=== PATIENT | female | born 1965 | race Caucasian/White ===

== ENCOUNTER 2019-01-03 21:13 | Emergency (ER) | payer MEDICARE ==
[2019-01-03] MEDS: Ketorolac 60 MG/2 ML SDV IM ONE (23:20)
--- NOTE | 2019-01-04 09:10 | ER ---
REASON FOR EMERGENCY ROOM VISIT: Toothache. HISTORY: This 53-year-old woman, with significant fibromyalgia, has had trouble off and on with a toothache for the past 3 months. She has been on penicillin for this 500 mg p.o. q.i.d. for the past 9 days. She takes tramadol on a chronic basis apparently for fibromyalgia 50 mg p.o. t.i.d. p.r.n., and she has 1 month supply of this. The toothache has been worse lately for the past few days, and they did make an appointment, but she is unable to see her dentist until 01/12/2019. She has not had any fever or chills. Her toothache has been more steady this evening and causes some pain to radiate down the left side of her neck. She denies fever or chills. MEDICATIONS: Reviewed. Please see EMR. PAST MEDICAL HISTORY: 1. Fibromyalgia. 2. Hypertension. ALLERGIES: GI UPSET WITH IBUPROFEN. PHYSICAL EXAMINATION: GENERAL: She is afebrile. HEENT: No conjunctivitis is noted. Oropharynx, she has a number of dental caries; her left mandibular molars, second and third molars, have a lot of debris and some mild erythema around the gingival edges. There is some tenderness to touch of these areas. NECK: She has no adenopathy. She has no facial swelling or parotid swelling. IMPRESSION: Probable tooth abscess with poor dentition. PLAN: In discussing the pain management aspects of her care, apparently she has been on a number of very high potency narcotics in the past for pain issues related to her fibromyalgia, including fentanyl patches, oxycodone, and hydrocodone, but she has done reasonably well on tramadol, for which she has been given monthly supplies on a fairly long- term basis. Because of these factors, I felt reluctant to give her any other opioid, other than the ones she is taking. We went ahead and gave her one 60 mg IM injection of Toradol. I instructed her to continue with her antibiotics as prescribed and that she can increase the dose of her tramadol from 1 tablet every 6 hours or 8 hours to 2 tablets every 4 hours as needed. That combined with the Toradol ought to get her by for the next day or so and she can check in with her provider, who is in [place]. Currently, they are staying at their cabin in [place], and I suggested that, given the discomfort she is going through, it might be sensible for them to return home earlier than planned, so that she can be seen by her primary care provider. I feel that, in cases like this, given her past history, her pain management should be undertaken by a single provider. I explained all this to the patient and her , and they completely understand and agree with this plan. All questions were answered. HERLINDA /[id number] OSCAR
== END 2019-01-04 00:05 | disposition home or self-care (01) ==
LOC: LB.ED 21:13
DX: K00.7 Teething syndrome (principal); K02.9 Dental caries, unspecified; I10 Essential (primary) hypertension; Z88.8 Allergy status to other drugs, medicaments and biological substances
CPT/HCPCS: 96372; 99282; J1885; 99283

== ENCOUNTER 2019-01-05 15:55 | Emergency (ER) | payer MEDICARE ==
--- NOTE | 2019-01-06 08:23 | ER ---
REASON FOR EMERGENCY ROOM VISIT: Toothache. HISTORY: Yoana returns 2 days after she was seen for a toothache on 01/03/2019. At that time, she had had a 3-month history of increasingly troublesome toothache. She had been on penicillin for 9 days prior to that visit. She had been taking tramadol for pain on a chronic basis for her fibromyalgia, and she had a very ample supply of that medication. The toothache had been worsening over the few days prior to that admission. Therefore, she was seen in the emergency department. She had no fever or chills with that. At that time, she was advised to continue on her penicillin, and because of her history of having been on a large number of opiates in the past because of issues related to her fibromyalgia, I advised that she double her dose of tramadol, which she has done. Prior to this, she has been on a variety of opiates, including fentanyl patches, oxycodone, and hydrocodone, but tramadol seemed to work best for her overall. She did get a 60 mg IM injection of Toradol, which offered her some pain relief for a day or so, but then her pain has come back and gotten back to where it was when she was seen 2 days ago. She has continued on the penicillin, and I believe she has run out by now. In the interim, she and her spoke to their dentist in [place], and sent her photos to look at. From that, her dentist made arrangements with an oral surgeon in [place], and she is scheduled for an extraction on Friday, 3 days from now. She has been afebrile and has no chills. The pain is quite significant. They receive mixed messages from the Oral Surgery Department in [place] versus her dentist in [place]. Apparently, whoever they spoke to in [place] suggested that she may need IV antibiotics, but no effort was made to reach out to me, so I do not know what they were referring to. PAST MEDICAL HISTORY: Significant for fibromyalgia and hypertension. MEDICATIONS: Reviewed. See EMR. PHYSICAL EXAMINATION: GENERAL: She is afebrile. HEENT: Examination of her oropharynx, she has a lot of dental caries and her left mandibular molars, both the 2nd and 3rd, have some fibrinous exudate and debris along the gingival margin. There is some slight edema of the gingiva adjacent to these 2 molars. She has no cervical adenopathy and no swelling of the soft tissues of her face, apart from her gingiva. IMPRESSION: Probable tooth abscesses involving the 2nd and 3rd molars. PLAN: They are understandably frustrated and I eventually was able to speak to her dentist in [place] to get the story about her recommendations. I indicated to her that I did not feel completely comfortable taking the advice of the patient regarding IV antibiotics without speaking directly to her dentist or the oral surgeon. Her dentist felt that it would be sensible to switch her over to Flagyl and clindamycin, as that is her usual policy in these cases and to discontinue the penicillin. I gave her a prescription for Flagyl 250 mg 1 p.o. q.i.d., as well as a prescription for clindamycin 300 mg p.o. q.i.d., enough to get past her expected date of extraction. If she needs more, she can get that from her oral surgeon. We also gave her acidophilus probiotic, and because of the pain, I elected to go ahead and give her a prescription for hydrocodone 5/325, dispense #10, 1 p.o. q.4-6 hours p.r.n. pain. They understand and agree with this plan. All questions were answered. HERLINDA /[id number]
== END 2019-01-05 17:35 | disposition home or self-care (01) ==
LOC: LB.ED 15:55
DX: K08.89 Other specified disorders of teeth and supporting structures (principal); I10 Essential (primary) hypertension; M79.7 Fibromyalgia; Z79.899 Other long term (current) drug therapy
CPT/HCPCS: 99282